=== PATIENT | female | born 1965 ===

== ENCOUNTER → 2025-05-16 08:00 | Outpatient (REF) | payer BC, SELFPAY ==
--- NOTE | 2025-05-16 11:01 | HPS.HSE ---
Family Physician
-
Family Physician: Andrade Triana
Chief Complaint
-
Persistent atrial fibrillation. Atypical atrial flutter.
History of Present Illness
The patient is a 59 year old morbidly obese, female presenting today for persistent atrial fibrillation and atypical atrial flutter. She was initially diagnosed with her atrial arrhythmias in January 2020. She does report a history of
associated palpitations. She would undergo a total of 9 cardioversions, with the last occurring just recently in March 2025, and pulmonary vein isolation in March 2020 for these diagnoses. She is on current pharmacological therapy with Amiodarone and
Diltiazem. She previously failed medical therapy with Sotalol and Metoprolol. She does report compliance with Eliquis for oral anticoagulation. She is interested in pursuing pulmonary vein isolation for more definitive arrhythmia management as she
would prefer not to be on lifelong medical therapy. She denies any current complaints today such as chest pain, shortness of breath at rest, nausea, vomiting, diarrhea, lightheadedness, dizziness, cough, sore throat, or fever.
Medical History
Past Medical History
Past Medical History: Reports Other
Additional Past Medical History:
1. Persistent atrial fibrillation and atypical atrial flutter, status post cardioversion x9 and pulmonary vein isolation 05/2020; pharmacological therapy with Amiodarone and Diltiazem, oral anticoagulation with Eliquis.
2. Hypertension.
3. Chronic diastolic heart failure, preserved ejection fraction.
4. Left atrial appendage thrombus 01/2020; resolved with oral anticoagulation on transesophageal echocardiogram 03/2020.
5. Mild-moderate valvular disease.
6. Obstructive sleep apnea, compliant with BiPAP.
7. Diverticulosis.
8. Nephrolithiasis.
9. Migraines with aura.
10. Psoriasis with associated arthritis.
11. Insomnia.
12. Morbid obesity, BM 46.6.
13. Remote history of tobacco abuse.
Past Surgical History: Reports Other
Additional Past Surgical History:
1. Pulmonary vein isolation.
2. Cardioversion x9.
3. Lithotripsy and renal stent placement.
4. Umbilical hernia repair.
5. Right index finger surgery.
6. Right ganglion cystectomy.
7. Left foot surgery.
8. Tonsillectomy.
Social History
Tobacco: Former Smoker (She is a former less than 1 pack per day cigarette smoker who quit tobacco use altogether in 1992. )
Alcohol: None
Living: Other (She lives with her fianc� in a first floor apartment. )
Family History
Family History: Not pertinent
Allergies / Home Medications
Allergy/Medication List:
Home medications:
1. Amiodarone 200 mg p.o. daily.
2. Bisoprolol fumarate 5 mg p.o. twice a day.
3. Cholecalciferol 50,000 units p.o. monthly.
4. Diltiazem 240 mg p.o. daily.
5. Eliquis 5 mg p.o. twice a day.
6. Furosemide 40 mg p.o. daily.
7. Taltz 80 mg subcutaneous monthly.
8. Melatonin 5 mg p.o. at bedtime as needed.
Allergies: No known drug allergies.
Review of Systems
-
A 12 point ROS was completed and negative except as noted: Yes
Physical Exam
Vital Signs
Blood pressure 129/69. Heart rate 58. Respirations 18. Pulse ox 92%, increasing to 97% with encouraged deep breathing.
Height 5 feet, 5 inches. Weight 127 kg. BMI 46.6.
Physical Exam
General: Well Developed, Well Nourished and No Apparent Distress
HEENT: NormoCephalic, Moist mucous membranes, Atraumatic and PERRLA
Respiratory: Clear
Cardiac: Bradycardia and Murmur
GI: Soft, Non Tender, Non Distended and Other (Morbidly obese. )
Musculoskeletal: No Edema and Normal Gait & Station
Skin: Warm and Dry
Neuro: AO x 3 and Nonfocal/grossly intact
Laboratory Results
-
DIAGNOSTIC STUDIES as of 05/16/2025: White blood cell count 6.1. Hemoglobin 15.3. Platelet count 227,000. PT 15.6. INR 1.21. Sodium 141. Potassium 4.4. BUN 20. Creatinine 0.8. Glucose 96. Calcium 8.9. Magnesium 1.8. AST 29. ALT 32. Albumin 4.3. Type
and screen A positive.
EKG 05/16/2025: Sinus bradycardia. Low voltage QRS.
Echocardiogram 03/14/2025: Left ventricular ejection fraction is 55-60%. Mild aortic valve stenosis. Moderate pulmonary valve regurgitation. Moderate mitral annular calcification. Mitral stenosis appears no more than moderate range due to short
pressure halftime. Mild mitral regurgitation. Study done in atrial fibrillation/flutter.
Impression/Plan
-
IMPRESSION/PLAN:
1. Persistent atrial fibrillation and atypical atrial flutter: The patient is in need of pulmonary vein isolation with Dr. Tai Navarrete on 06/02/2025. The benefits and risks of the procedure have been explained to the patient. The patient
understands these risks and wishes to proceed. She will not be required to undergo a pre-procedural transesophageal echocardiogram as she has been compliant with her home oral anticoagulation. She is aware to continue her Eliquis uninterrupted prior
to her procedure. She will take no medications the morning of her ablation.
[2025-05-16 11:41] LABS: Hematocrit 46.5 % (37.0-47.0); Hemoglobin 15.3 g/dL (12.0-16.0); Mean Corp Hgb Conc. 32.9 g/dL (33.0-37.0); Mean Corpuscular Volume 89.4 fL (81.0-99.0); Nucleated Red Blood Cells % 0 %; Platelet Count 227 10^3/uL (130-400); Red Cell Dist. Width 14.1 % (11.5-14.5)
[2025-05-16 11:44] LABS: INR 1.21; PT 15.6 Sec (11.4-14.6)
[2025-05-16 12:12] LABS: ALT (SGPT) 32 U/L (0-35); AST (SGOT) 29 U/L (14-36); Albumin 4.3 g/dl (3.5-5.0); Alkaline Phosphatase 51 U/L (38-126); Blood Urea Nitrogen 20 mg/dl (7-17); Calcium 8.9 mg/dl (8.4-10.2); Carbon Dioxide 27 mmol/L (22-30); Chloride 105 mmol/L (98-107); Glucose 96 mg/dl (70-99); Magnesium 1.8 mg/dl (1.6-2.3); Potassium 4.4 mmol/L (3.5-5.1); Sodium 141 mmol/L (135-145); Total Protein 8.1 g/dl (6.3-8.2); eGFR > 60.00
[2025-05-16 13:49] VITALS: BMI 46.6
== END ==
LOC: SDSPAT 08:00
PROVIDERS: ATTENDING PHYSICIAN Internal Medicine Cardiovascular Disease; FAMILY PHYSICIAN Family Medicine; REFERRING PHYSICIAN Internal Medicine Cardiovascular Disease
DX: I48.19 Other persistent atrial fibrillation (principal)
CPT/HCPCS: 36415; 80053; 83735; 85025; 85610; 86850; 86900; 86901; 93005